=== PATIENT | male | born 1995 | race Native Hawaiian/Other Pacific Islander ===

== ENCOUNTER 2019-08-22 01:12 | Emergency (ER) | payer OTHER ==
[~2019-08-22] VITALS: Ht 180.3 cm; Wt 72.6 kg
[2019-08-22 02:30] VITALS: BP 112/75; TEMP 98.3
== END 2019-08-22 02:30 | disposition home or self-care (01) ==
LOC: ED 01:12
PROC: 0HQFXZZ Repair Right Hand Skin, External Approach (ICD-10-PCS; principal; 2019-08-22)
DX: S61.011A Laceration without foreign body of right thumb without damage to nail, initial encounter (principal); S61.210A Laceration without foreign body of right index finger without damage to nail, initial encounter; W25.XXXA Contact with sharp glass, initial encounter; Y92.89 Other specified places as the place of occurrence of the external cause
CPT/HCPCS: 99282; 99283

== ENCOUNTER 2021-02-25 19:58 | Emergency (ER) | payer OTHER ==
[~2021-02-25] VITALS: Ht 180.3 cm; Wt 72.6 kg
[2021-02-25 21:25] VITALS: BP 118/60; TEMP 98.2
== END 2021-02-25 21:27 | disposition home or self-care (01) ==
LOC: ED 19:58
PROC: 2W3GX1Z Immobilization of Right Thumb using Splint (ICD-10-PCS; principal; 2021-02-25)
DX: S63.681A Other sprain of right thumb, initial encounter (principal); Y35.891A Legal intervention involving other specified means, law enforcement official injured, initial encounter; Y92.89 Other specified places as the place of occurrence of the external cause
CPT/HCPCS: 99282

== ENCOUNTER 2021-04-23 13:56 | Emergency (ER) | payer OTHER ==
[~2021-04-23] VITALS: Ht 180.3 cm; Wt 72.6 kg
[2021-04-23 15:36] VITALS: BP 124/75; TEMP 98.5
== END 2021-04-23 15:36 | disposition home or self-care (01) ==
LOC: ED 13:56
DX: S80.812A Abrasion, left lower leg, initial encounter (principal); W54.0XXA Bitten by dog, initial encounter; Y92.89 Other specified places as the place of occurrence of the external cause
CPT/HCPCS: 90715; 96372; 99282; J0690